=== PATIENT | female | born 1980 | race Caucasian/White ===

== ENCOUNTER → 2018-04-30 | Outpatient (REF) | payer MEDICARE, MEDICAID ==
[2018-05-04 11:39] LABS: ALPHA 2-MACROGLOBULIN 222 mg/dL (110-276); ALT 66 IU/L (0-40); APOLIPOPROTEIN A-1 160 mg/dL (116-209); FIBROSIS SCORE 0.13 (0.00-0.21); GGT 46 IU/L (0-60); HAPTOGLOBIN 110 mg/dL (34-200); HEPATITIS C QUANTITATION 1474170 IU/mL (.); HEPATITIS C VIRUS GENOTYPE 3 (.); NECROINFLAM SCORE 0.33 (0.00-0.17); NECROINFLAMM GRADE A1-Minimal activity (.); TOTAL BILIRUBIN 0.3 mg/dL (0.0-1.2)
== END ==
LOC: M SFHCPLAZ 10:11
DX: R76.8 Other specified abnormal immunological findings in serum (principal); Z23 Encounter for immunization
CPT/HCPCS: 84460

== ENCOUNTER → 2022-01-14 | Outpatient (CLI) | payer MEDICARE, MEDICAID ==
[~2022-01-14] MED LIST: ADVAIR; COMBVENT; KADIAN; LIDOCAINE PATCH; MORP15TA4
== END ==
LOC: M WHC 12:21
PROVIDERS: ATTEND Nurse Practitioner Family
DX: Z12.31 Encounter for screening mammogram for malignant neoplasm of breast (principal); Z13.820 Encounter for screening for osteoporosis; M85.89 Other specified disorders of bone density and structure, multiple sites

== ENCOUNTER → 2022-01-24 | Outpatient (REF) | payer MEDICARE, MEDICAID | LOC: M LAB REF 16:24 | PROVIDERS: ATTEND Nurse Practitioner Family | DX: R30.9 Painful micturition, unspecified (principal) ==

== ENCOUNTER → 2022-03-03 | Outpatient (REF) | payer MEDICARE, MEDICAID | LOC: M LAB REF 16:17 | PROVIDERS: ATTEND Nurse Practitioner Family | DX: R10.9 Unspecified abdominal pain (principal); Z11.3 Encounter for screening for infections with a predominantly sexual mode of transmission; A64 Unspecified sexually transmitted disease ==

== ENCOUNTER → 2022-11-28 | Outpatient (REF) | payer MEDICARE, MEDICAID ==
[2022-11-28 15:41] LABS: GC DNA AMPLIFICATION NEGATIVE (NEGATIVE)
== END ==
LOC: M LAB REF 12:42
PROVIDERS: ATTEND Nurse Practitioner Family
DX: N89.8 Other specified noninflammatory disorders of vagina (principal); Z11.9 Encounter for screening for infectious and parasitic diseases, unspecified; J02.9 Acute pharyngitis, unspecified

== ENCOUNTER 2023-01-27 13:57 | Emergency (ER) | payer MEDICARE, MEDICAID ==
[~2023-01-27] VITALS: Ht 152.4 cm; Wt 57.9 kg
[2023-01-27 15:23] LABS: HEMATOCRIT 41.6 % (36.0-47.0); HEMOGLOBIN 14.4 g/dl (12.0-15.5); MEAN CORPUSCULAR HEMOGLOBIN 30.8 pg (27.0-33.0); MEAN CORPUSCULAR HGB CONC 34.6 g/dl (32.0-36.5); MEAN CORPUSCULAR VOLUME 89.1 fl (80.0-96.0); RED BLOOD COUNT 4.67 10^6/uL (4.00-5.40); WHITE BLOOD COUNT 12.5 10^3/uL (4.0-10.0)
[2023-01-27] MEDS ORDERED: NICOTINE 21MG/24HR 1 EA TRANSDERMAL TD ONE (15:35)
[2023-01-27 15:46] LABS: ETHYL ALCOHOL (ETHANOL) < 0.003 % (0.000-0.010)
[2023-01-27 15:47] LABS: SALICYLATE LEVEL < 3.0 MG/DL (<30)
[2023-01-27 15:48] LABS: ACETAMINOPHEN LEVEL < 2.0 UG/ML (10.0-20.0); ALBUMIN 3.7 G/DL (3.2-5.2); ALKALINE PHOSPHATASE 101 U/L (46-116); ALT/SGPT 21 U/L (7.0-40); AST/SGOT 24 U/L (<34); BILIRUBIN,DIRECT 0.2 MG/DL (<0.4); BILIRUBIN,TOTAL 0.7 MG/DL (0.3-1.2); BLOOD UREA NITROGEN 6 MG/DL (9-23); CALCIUM LEVEL 9.1 MG/DL (8.5-10.1); CARBON DIOXIDE LEVEL 25 MMOL/L (20-31); CHLORIDE LEVEL 105 MMOL/L (98-107); CREATININE FOR GFR 0.59 MG/DL (0.55-1.30); GLOMERULAR FILTRATION RATE > 60.0 (>58); GLUCOSE, FASTING 91 MG/DL (60-100); POTASSIUM SERUM 3.9 MMOL/L (3.5-5.1); SODIUM LEVEL 139 MMOL/L (136-145); TOTAL PROTEIN 7.1 G/DL (5.7-8.2)
[2023-01-27 15:49] LABS: THYROID STIMULATING HORMONE 1.466 uIU/ML (0.55-4.78)
[2023-01-27] MEDS ORDERED: MED REC IN PROGRESS XX SCH (16:00)
[2023-01-27 16:11] LABS: HCG, SERUM QUALITATIVE NEGATIVE (NEGATIVE)
[2023-01-27 16:59] LABS: AMPHETAMINES LEVEL URINE NEGATIVE (NEGATIVE); BARBITURATES URINE NEGATIVE (NEGATIVE); BENZODIAZEPINES URINE NEGATIVE (NEGATIVE); COCAINE METABOLITE URINE NEGATIVE (NEGATIVE); METHADONE URINE NEGATIVE (NEGATIVE); PLATELET COUNT, AUTOMATED 155 10^3/uL (150-450)
[2023-01-27 17:00] LABS: OPIATES URINE NEGATIVE (NEGATIVE)
[2023-01-27] MEDS ORDERED: IPRATROPIUM 0.5MG/ALBUTEROL 2.5MG INH SOL UD 3ML (DUONEB) NEB ONE (17:00)
[2023-01-27] MEDS ORDERED: ALBU1.25 NEB (17:10)
[2023-01-27] MEDS ORDERED: ALBU8.5H INH (17:10)
[2023-01-27] MEDS ORDERED: HOME MED LIST COMPLETE! XX SCH (17:15)
[2023-01-27 17:21] LABS: CANNABINOIDS URINE POSITIVE (NEGATIVE)
[2023-01-27 17:52] LABS: PHENCYCLIDINE URINE NEGATIVE (NEGATIVE)
[2023-01-27 19:19] VITALS: BP 134/71; TEMP 98.1; O2SAT 95
== END 2023-01-27 19:21 ==
LOC: M ED 14:56
DX: F23 Brief psychotic disorder (principal); F31.9 Bipolar disorder, unspecified; J45.909 Unspecified asthma, uncomplicated; F17.200 Nicotine dependence, unspecified, uncomplicated; Z81.8 Family history of other mental and behavioral disorders; Z88.5 Allergy status to narcotic agent

== ENCOUNTER 2025-04-01 18:07 | Inpatient (IN) | payer MEDICARE, MEDICAID ==
[~2025-04-01] VITALS: Ht 152.4 cm; Wt 57.5 kg
[~2025-04-01 18:07] MED LIST changes: +ABIL1TAB11 PO; +ACET-897 PO; +ALBU1.25 NEB; +ALBU8.5H INH; +HYDR50TA70 PO; +LEVA15HF2 INH
[2025-04-01] MEDS: NIX CREME RINSE 1% 60 ML KIT TOP ONE (19:17)
[2025-04-01 19:23] LABS: PLATELET COUNT, AUTOMATED 324 10^3/uL (150-450)
[2025-04-01 20:04] LABS: ETHYL ALCOHOL (ETHANOL) < 0.003 % (0.000-0.010)
[2025-04-01 20:06] LABS: ALT/SGPT 18 U/L (7.0-40); AST/SGOT 22 U/L (<34); CALCIUM LEVEL 9.1 MG/DL (8.5-10.1); CARBON DIOXIDE LEVEL 28 MMOL/L (20-31); CHLORIDE LEVEL 103 MMOL/L (98-107); CREATININE FOR GFR 0.77 MG/DL (0.55-1.30); GLOMERULAR FILTRATION RATE > 90.0 (>58); POTASSIUM SERUM 3.7 MMOL/L (3.5-5.1); SALICYLATE LEVEL < 3.0 MG/DL (<30); SODIUM LEVEL 140 MMOL/L (136-145)
[2025-04-01 20:15] LABS: AMPHETAMINES LEVEL URINE NEGATIVE (NEGATIVE); BARBITURATES URINE NEGATIVE (NEGATIVE)
[2025-04-01 20:16] LABS: BENZODIAZEPINES URINE NEGATIVE (NEGATIVE); COCAINE METABOLITE URINE NEGATIVE (NEGATIVE); METHADONE URINE NEGATIVE (NEGATIVE); OPIATES URINE NEGATIVE (NEGATIVE); PHENCYCLIDINE URINE NEGATIVE (NEGATIVE)
[2025-04-01 20:23] LABS: CANNABINOIDS URINE POSITIVE (NEGATIVE)
[2025-04-01 20:46] LABS: KETONE, URINE AUTO RFX TRACE mg/dL (NEGATIVE); MUCUS, URINE RFX MODERATE (NEGATIVE); NITRITE, URINE AUTO RFX NEGATIVE (NEGATIVE); RBC, URINE AUTO RFX 20 /HPF (0-3); SQUAM EPITHELIAL CELL UR AURFX 44 /HPF (0-6)
[2025-04-01 20:54] LABS: LEUKOCYTE ESTERASE UR AUTO RFX 3+ (NEGATIVE); WBC, URINE AUTO RFX 49 /HPF (0-3)
[2025-04-01] MEDS: CEFDINIR 300 MG CAP PO ONE (22:24)
[2025-04-02] MEDS: NICOTINE 21 MG/24 HR 1 EA TRANSDERMAL TD ONE (09:50)
[2025-04-02] MEDS ORDERED: BACTDSTA PO (10:06)
[2025-04-02] MEDS ORDERED: HOME MED LIST COMPLETE! XX SCH (10:10)
[2025-04-02] MEDS ORDERED: IBUPROFEN 400 MG TAB PO PRN (12:40)
[2025-04-02] MEDS ORDERED: MAALOX 30 ML SUSP *UDC PO PRN (12:40)
[2025-04-02 14:07] VITALS: BP 151/93; TEMP 97.3; O2SAT 96
[2025-04-02] MEDS: ALBUTEROL 90 MCG/ACT 8 GM HFA INHALER INH PRN (17:24)
[2025-04-02] MEDS: ACETAMINOPHEN 325 MG TAB PO PRN (18:40)
[2025-04-03 06:42] VITALS: BP 132/86; TEMP 97.1; O2SAT 92
[2025-04-03] MEDS: RISPERIDONE 1 MG TAB PO SCH (09:55)
[2025-04-03] MEDS: NICOTINE 21 MG/24 HR 1 EA TRANSDERMAL TD SCH (10:04)
[2025-04-03 15:49] VITALS: BP 120/82; TEMP 98.3; O2SAT 97
[2025-04-04 07:00] VITALS: BP 134/89; TEMP 97.4; O2SAT 99
[2025-04-04] MEDS: IVERMECTIN 3 MG TAB PO ONE (18:28)
[2025-04-04] MEDS: NIX CREME RINSE 1% 60 ML KIT TOP ONE (21:18)
[2025-04-04] MEDS: traZODone 50 MG TAB PO PRN (21:34)
[2025-04-05 06:25] VITALS: BP 118/81; TEMP 97.7; O2SAT 95
[2025-04-05 15:36] VITALS: BP 122/82; TEMP 98.1; O2SAT 95
[2025-04-06 06:16] VITALS: BP 105/71; TEMP 97.6; O2SAT 98
[2025-04-06 15:28] VITALS: BP 111/77; TEMP 97.8; O2SAT 96
[2025-04-07 15:06] VITALS: BP 125/92; TEMP 98.2; O2SAT 96
[2025-04-07] MEDS: RISPERIDONE 1 MG TAB PO SCH (21:04)
[2025-04-08 15:08] VITALS: BP 147/88; TEMP 97.8; O2SAT 95
[2025-04-08] MEDS: MOM 30 ML SUSPENSION UDC PO PRN (20:59)
[2025-04-08] MEDS ORDERED: RISP-105 PO (22:50)
[2025-04-08] MEDS ORDERED: TRAZ-252 PO (22:50)
[2025-04-08] MEDS ORDERED: HYDR-3363 PO (22:50)
[2025-04-08] MEDS ORDERED: RISP-106 PO (22:50)
[2025-04-09 06:37] VITALS: BP 108/69; TEMP 97.2; O2SAT 97
[2025-04-09] MEDS: RISPERIDONE 1 MG TAB PO SCH (08:16)
== END 2025-04-09 13:11 | disposition home or self-care (01) | DRG 885 ==
LOC: M ED 18:07 → M ED INP 04-02 12:38 → M PSY 04-02 14:00
PROVIDERS: ADMIT General Practice; ATTEND General Practice
DX: F29 Unspecified psychosis not due to a substance or known physiological condition (principal); F41.0 Panic disorder [episodic paroxysmal anxiety]; F31.64 Bipolar disorder, current episode mixed, severe, with psychotic features; F90.9 Attention-deficit hyperactivity disorder, unspecified type; Z88.5 Allergy status to narcotic agent; J45.909 Unspecified asthma, uncomplicated; F17.200 Nicotine dependence, unspecified, uncomplicated; F12.90 Cannabis use, unspecified, uncomplicated; D72.829 Elevated white blood cell count, unspecified; Z79.899 Other long term (current) drug therapy

== ENCOUNTER 2025-05-02 10:43 | Inpatient (IN) | payer MEDICARE, MEDICAID ==
[~2025-05-02] VITALS: Ht 152.4 cm; Wt 57.5 kg
[~2025-05-02 10:43] MED LIST changes: +BACTDSTA PO; +HYDR-3363 PO; +RISP-105 PO; +RISP-106 PO; +TRAZ-252 PO
[2025-05-02 11:29] LABS: PLATELET COUNT, AUTOMATED 288 10^3/uL (150-450)
[2025-05-02 11:45] LABS: ETHYL ALCOHOL (ETHANOL) < 0.003 % (0.000-0.010)
[2025-05-02] MEDS ORDERED: HYDR-3363 PO (11:46)
[2025-05-02] MEDS ORDERED: TRAZ-186 PO (11:46)
[2025-05-02] MEDS ORDERED: RISP-106 PO (11:46)
[2025-05-02] MEDS ORDERED: RISP-105 PO (11:46)
[2025-05-02 11:47] LABS: ALT/SGPT 17 U/L (7.0-40); AST/SGOT 19 U/L (<34); CALCIUM LEVEL 9.3 MG/DL (8.5-10.1); CARBON DIOXIDE LEVEL 28 MMOL/L (20-31); CHLORIDE LEVEL 104 MMOL/L (98-107); CREATININE FOR GFR 0.59 MG/DL (0.55-1.30); GLOMERULAR FILTRATION RATE > 90.0 (>58); POTASSIUM SERUM 3.5 MMOL/L (3.5-5.1); SALICYLATE LEVEL < 3.0 MG/DL (<30); SODIUM LEVEL 141 MMOL/L (136-145)
[2025-05-02] MEDS ORDERED: HOME MED LIST COMPLETE! XX SCH (11:50)
[2025-05-02 11:57] LABS: AMPHETAMINES LEVEL URINE NEGATIVE (NEGATIVE); BARBITURATES URINE NEGATIVE (NEGATIVE); BENZODIAZEPINES URINE NEGATIVE (NEGATIVE); COCAINE METABOLITE URINE NEGATIVE (NEGATIVE); METHADONE URINE NEGATIVE (NEGATIVE); OPIATES URINE NEGATIVE (NEGATIVE); PHENCYCLIDINE URINE NEGATIVE (NEGATIVE)
[2025-05-02 12:18] LABS: CANNABINOIDS URINE POSITIVE (NEGATIVE)
[2025-05-02 13:01] LABS: URINE PREG TEST NEGATIVE (NEGATIVE)
[2025-05-02] MEDS ORDERED: MOM 30 ML SUSPENSION UDC PO PRN (14:15)
[2025-05-02] MEDS ORDERED: OLANZapine ORAL DISINTEGRATING TAB 5MG PO PRN (14:15)
[2025-05-03 06:30] VITALS: BP 126/78; TEMP 97.6; O2SAT 97
[2025-05-03] MEDS: ACETAMINOPHEN 325 MG TAB PO PRN (09:15)
[2025-05-03] MEDS: NICOTINE 21 MG/24 HR 1 EA TRANSDERMAL TD SCH (12:32)
[2025-05-03] MEDS: ALBUTEROL 90 MCG/ACT 8 GM HFA INHALER INH PRN (21:12)
[2025-05-04 06:24] VITALS: BP 126/84; TEMP 98.6; O2SAT 100
[2025-05-04] MEDS: IBUPROFEN 400 MG TAB PO PRN (10:47)
[2025-05-04 18:37] VITALS: BP 125/90; TEMP 98.2; O2SAT 94
[2025-05-05 06:40] VITALS: BP 112/74; TEMP 99; O2SAT 98
[2025-05-05 07:03] VITALS: BP 116/74; TEMP 99; O2SAT 98
[2025-05-05 16:18] VITALS: BP 117/77; TEMP 98.4; O2SAT 94
[2025-05-05] MEDS: traZODone 50 MG TAB PO PRN (20:33)
[2025-05-06 06:40] VITALS: BP 116/79; TEMP 97.9; O2SAT 99
[2025-05-06] MEDS: MAALOX 30 ML SUSP *UDC PO PRN (14:32)
[2025-05-06 17:03] VITALS: BP 137/87; TEMP 98.4; O2SAT 99
[2025-05-07 06:27] VITALS: BP 125/72; TEMP 97.5; O2SAT 99
[2025-05-07 16:22] VITALS: BP 130/79; TEMP 97.7; O2SAT 95
[2025-05-08 06:38] VITALS: BP 126/70; TEMP 98.1; O2SAT 97
[2025-05-08] MEDS ORDERED: HYDR-3363 PO (08:29)
[2025-05-08] MEDS ORDERED: ALBU8.5H INH (08:29)
[2025-05-08] MEDS ORDERED: ABIL10TA9 PO (08:29)
[2025-05-08] MEDS ORDERED: TRAZ-186 PO (08:29)
== END 2025-05-08 15:57 | disposition home or self-care (01) | DRG 885 ==
LOC: M ED 10:43 → M ED INP 14:12 → M PSY 15:17
PROVIDERS: ADMIT General Practice; ATTEND General Practice
DX: F29 Unspecified psychosis not due to a substance or known physiological condition (principal); F12.90 Cannabis use, unspecified, uncomplicated; F31.9 Bipolar disorder, unspecified; Z88.5 Allergy status to narcotic agent; J45.909 Unspecified asthma, uncomplicated; F17.200 Nicotine dependence, unspecified, uncomplicated; F90.9 Attention-deficit hyperactivity disorder, unspecified type; Z79.899 Other long term (current) drug therapy; Z91.148 Patient's other noncompliance with medication regimen for other reason